=== PATIENT | male | born 1945 | race African-American/Black ===

== ENCOUNTER 2020-07-06 14:58 | Inpatient (IN) ==
[2020-07-06] MEDS ORDERED: PANTOPRAZOLE 40 MG VIAL IV STA (15:30)
[2020-07-06] MEDS ORDERED: SODIUM CHLORIDE 0.9% 1,000 ML IV STA (15:30)
[2020-07-06 16:25] LABS: Basophils % 0.2 % (0.0-0.8); Eosinophils % 0.2 % (0.00-10.9); Hematocrit 32.7 VOL% (42.0-52.0); Hemoglobin 10.6 GM/DL (14.0-18.0); Immature Granulocytes % 0.6 %; Immature Granulocytes Absolute 0.05 #; Lymphocytes # 0.9 10*3/uL (1.4-4.0); Lymphocytes % 9.7 % (21.2-54.2); Mean Corpuscular HGB Conc 32.4 GM/DL (32-36); Mean Corpuscular Volume 85.8 FL (87-102); Mean Platelet Volume 9.2 FL (9.6-12.0); Monocytes % 5.1 % (1.7-12.7); Neutrophils % 84.2 % (38.7-73.9); Platelet Count 358 T/CUMM (130-400); Red Blood Count 3.81 MC/CUMM (3.8-5.5); Red Cell Distribution Width 14.6 % (9.3-17.3); White Blood Count 8.8 T/CUMM (4-12)
[2020-07-06 16:43] LABS: Alanine Aminotransferase 13 U/L (16-61); Alkaline Phosphatase 61 U/L (45-117); Aspartate Amino Transferase 10 U/L (0-37); Bilirubin,Total < 0.39 MG/DL (0.2-1.0); Blood Urea Nitrogen 94 MG/DL (7-18); Calcium 8.2 MG/DL (8.5-10.1); Carbon Dioxide 16 MMOL/L (21-32); Estimated Glom Filtration Rate 15 ML/MIN; Glucose 87 MG/DL (74-106); Osmolality,Calculated 295.2 MOS/KG (273-304); PT Patient Result 10.4 SECS (9.8-11.9); Partial Thromboplastin Time 24.5 SECS (23.9-33.8); Potassium 4.5 MMOL/L (3.5-5.1); Sodium 134 MMOL/L (136-145); Total Protein 7.3 G/DL (6.4-8.3)
[2020-07-06] MEDS ORDERED: ACETAMINOPHEN 325 MG TABLET PO PRN (17:55)
[2020-07-06] MEDS ORDERED: GLUCAGON 1 MG VIAL IM PRN (17:55)
[2020-07-06] MEDS ORDERED: DEXTROSE 50% 25 GM/50 ML VIAL IV PRN (17:55)
[2020-07-06] MEDS ORDERED: ONDANSETRON 4 MG/2 ML VIAL IV PRN (17:55)
[2020-07-06] MEDS: SODIUM CHLORIDE 0.9% 1,000 ML IV SCH (18:17)
[2020-07-06 20:03] LABS: Bilirubin,Urine Negative (Negative); Blood, Urine Moderate mg/dL (Negative); Glucose,Urine (UA) Negative (Negative); Ketones,Urine Negative (Negative); Nitrite,Urine Positive (Negative); Protein,Urine 100 MG/DL; Urine Appearance CLOUDY (Clear); Urine Color Amber (Yellow); Urine Specific Gravity 1.011 (1.001-1.035)
[2020-07-06] MEDS ORDERED: SODIUM CHLORIDE 0.9% 500 ML IV STA (20:05)
[2020-07-07 04:15] LABS: Basophils % 0.4 % (0.0-0.8); Eosinophils # 0.2 10*3/uL (0.0-0.87); Eosinophils % 2.3 % (0.00-10.9); Hematocrit 26.1 VOL% (42.0-52.0); Immature Granulocytes % 0.5 %; Immature Granulocytes Absolute 0.04 #; Lymphocytes # 1.8 10*3/uL (1.4-4.0); Lymphocytes % 21.8 % (21.2-54.2); Mean Corpuscular HGB Conc 32.6 GM/DL (32-36); Mean Corpuscular Volume 86.7 FL (87-102); Mean Platelet Volume 9.6 FL (9.6-12.0); Monocytes % 10.4 % (1.7-12.7); Neutrophils % 64.6 % (38.7-73.9); Platelet Count 346 T/CUMM (130-400); Red Cell Distribution Width 14.8 % (9.3-17.3); White Blood Count 8.4 T/CUMM (4-12)
[2020-07-07 04:18] LABS: Hemoglobin 8.5 GM/DL (14.0-18.0); Red Blood Count 3.01 MC/CUMM (3.8-5.5)
[2020-07-07 04:36] LABS: % Iron Saturation 37.8 % (18-50); Ferritin 114.5 ng/ml (26-388)
[2020-07-07 04:41] LABS: Albumin 2.4 G/DL (3.4-5.0); Bilirubin,Total 0.4 MG/DL (0.2-1.0); Calcium 7.8 MG/DL (8.5-10.1); Osmolality,Calculated 289.1 MOS/KG (273-304); Potassium 4.5 MMOL/L (3.5-5.1); Risk Ratio 5.14; Thyroid Stimulating Hormone 0.895 uIU/ml (0.358-3.74); Total Protein 6.5 G/DL (6.4-8.3); VLDL CHOLESTEROL 19.6 MG/DL
[2020-07-07 04:59] LABS: Folate 6.3 NG/ML (5.38-24.0)
[2020-07-07] MEDS: ATORVASTATIN 40 MG TABLET PO SCH (10:20)
[2020-07-07] MEDS: MONTELUKAST 10 MG TABLET PO SCH (10:20)
[2020-07-07] MEDS: PANTOPRAZOLE 40 MG TABLET PO SCH (10:20)
[2020-07-07] MEDS: cefTRIAXone 1,000 MG in SYRINGE 1 EACH IV SCH (10:26)
[2020-07-07] MEDS: SODIUM CHLORIDE 0.9% 1,000 ML IV SCH ×2 (21:04→21:05)
[2020-07-08] MEDS: SODIUM CHLORIDE 0.9% 1,000 ML IV SCH ×2 (03:40→13:03)
[2020-07-08 05:16] LABS: Basophils # 0.1 10*3/uL (0.0-0.2); Basophils % 1.4 % (0.0-0.8); Eosinophils # 0.3 10*3/uL (0.0-0.87); Eosinophils % 4.3 % (0.00-10.9); Hematocrit 32.4 VOL% (42.0-52.0); Hemoglobin 10.8 GM/DL (14.0-18.0); Immature Granulocytes % 0.3 %; Immature Granulocytes Absolute 0.02 #; Lymphocytes # 1.5 10*3/uL (1.4-4.0); Lymphocytes % 26.3 % (21.2-54.2); Mean Corpuscular HGB Conc 33.3 GM/DL (32-36); Mean Corpuscular Volume 84.8 FL (87-102); Mean Platelet Volume 9.7 FL (9.6-12.0); Monocytes % 12.1 % (1.7-12.7); Neutrophils % 55.6 % (38.7-73.9); Platelet Count 292 T/CUMM (130-400); Red Blood Count 3.82 MC/CUMM (3.8-5.5); Red Cell Distribution Width 15.3 % (9.3-17.3); White Blood Count 5.8 T/CUMM (4-12)
[2020-07-08 05:37] LABS: Albumin 2.5 G/DL (3.4-5.0); Bilirubin,Total 0.7 MG/DL (0.2-1.0); Calcium 7.9 MG/DL (8.5-10.1); Osmolality,Calculated 290.4 MOS/KG (273-304); Potassium 5.2 MMOL/L (3.5-5.1); Total Protein 6.4 G/DL (6.4-8.3)
[2020-07-08] MEDS: cefTRIAXone 1,000 MG in SYRINGE 1 EACH IV SCH ×2 (09:05→10:22)
[2020-07-08] MEDS: TAMSULOSIN 0.4 MG CAPSULE PO SCH (09:05)
[2020-07-08] MEDS: PANTOPRAZOLE 40 MG TABLET PO SCH (09:05)
[2020-07-08] MEDS: MONTELUKAST 10 MG TABLET PO SCH (09:05)
[2020-07-08] MEDS: ATORVASTATIN 40 MG TABLET PO SCH (09:05)
[2020-07-08] MEDS ORDERED: GLUCAGON 1 MG VIAL IM PRN (16:46)
[2020-07-08] MEDS: INSULIN LISPRO 100 UNIT/ML SUBCUT SCH (23:06)
[2020-07-09] MEDS: SODIUM CHLORIDE 0.9% 1,000 ML IV SCH ×2 (00:33→15:48)
[2020-07-09 05:05] LABS: Basophils # 0.1 10*3/uL (0.0-0.2); Basophils % 1.3 % (0.0-0.8); Eosinophils # 0.4 10*3/uL (0.0-0.87); Eosinophils % 5.2 % (0.00-10.9); Hematocrit 32.5 VOL% (42.0-52.0); Hemoglobin 10.5 GM/DL (14.0-18.0); Immature Granulocytes % 0.3 %; Immature Granulocytes Absolute 0.02 #; Lymphocytes # 1.6 10*3/uL (1.4-4.0); Lymphocytes % 22.5 % (21.2-54.2); Mean Corpuscular HGB Conc 32.3 GM/DL (32-36); Mean Corpuscular Volume 86.4 FL (87-102); Mean Platelet Volume 9.3 FL (9.6-12.0); Neutrophils % 60.7 % (38.7-73.9); Platelet Count 278 T/CUMM (130-400); Red Blood Count 3.76 MC/CUMM (3.8-5.5); Red Cell Distribution Width 15.1 % (9.3-17.3); White Blood Count 7.1 T/CUMM (4-12)
[2020-07-09 05:32] LABS: Calcium 8.1 MG/DL (8.5-10.1); Potassium 5.4 MMOL/L (3.5-5.1)
[2020-07-09] MEDS ORDERED: INSULIN REGULAR 10 UNIT, CALCIUM GLUCONATE 1,000 MG in DEXTROSE 10% 250 ML IV ONE (08:15)
[2020-07-09] MEDS: TAMSULOSIN 0.4 MG CAPSULE PO SCH (09:19)
[2020-07-09] MEDS: PANTOPRAZOLE 40 MG TABLET PO SCH (09:19)
[2020-07-09] MEDS: ATORVASTATIN 40 MG TABLET PO SCH (09:19)
[2020-07-09] MEDS: MONTELUKAST 10 MG TABLET PO SCH (09:19)
[2020-07-09] MEDS: INSULIN LISPRO 100 UNIT/ML SUBCUT SCH ×4 (09:20→21:59)
[2020-07-09] MEDS: cefTRIAXone 1,000 MG in SYRINGE 1 EACH IV SCH (09:20)
[2020-07-10] MEDS: SODIUM CHLORIDE 0.9% 1,000 ML IV SCH ×3 (04:51→15:56)
[2020-07-10 05:46] LABS: Basophils # 0.1 10*3/uL (0.0-0.2); Eosinophils # 0.5 10*3/uL (0.0-0.87); Eosinophils % 5.4 % (0.00-10.9); Hematocrit 30.4 VOL% (42.0-52.0); Hemoglobin 10.3 GM/DL (14.0-18.0); Immature Granulocytes % 0.5 %; Immature Granulocytes Absolute 0.04 #; Lymphocytes # 1.8 10*3/uL (1.4-4.0); Lymphocytes % 22.2 % (21.2-54.2); Mean Corpuscular HGB Conc 33.9 GM/DL (32-36); Mean Corpuscular Volume 84.4 FL (87-102); Mean Platelet Volume 9.5 FL (9.6-12.0); Monocytes % 7.3 % (1.7-12.7); Neutrophils % 63.6 % (38.7-73.9); Platelet Count 264 T/CUMM (130-400); Red Cell Distribution Width 14.5 % (9.3-17.3); White Blood Count 8.3 T/CUMM (4-12)
[2020-07-10 06:06] LABS: Calcium 8.2 MG/DL (8.5-10.1); Osmolality,Calculated 272.1 MOS/KG (273-304); Potassium 4.9 MMOL/L (3.5-5.1)
[2020-07-10] MEDS: INSULIN LISPRO 100 UNIT/ML SUBCUT SCH ×4 (08:33→20:44)
[2020-07-10] MEDS: cefTRIAXone 1,000 MG in SYRINGE 1 EACH IV SCH (09:28)
[2020-07-10] MEDS: MAGNESIUM OXIDE 400 MG TABLET PO SCH ×2 (09:39→20:43)
[2020-07-10] MEDS: PANTOPRAZOLE 40 MG TABLET PO SCH (09:39)
[2020-07-10] MEDS: ATORVASTATIN 40 MG TABLET PO SCH (09:40)
[2020-07-10] MEDS: MONTELUKAST 10 MG TABLET PO SCH (09:40)
[2020-07-10] MEDS: TAMSULOSIN 0.4 MG CAPSULE PO SCH (09:40)
[2020-07-11 06:03] LABS: Basophils # 0.1 10*3/uL (0.0-0.2); Eosinophils # 0.4 10*3/uL (0.0-0.87); Eosinophils % 4.4 % (0.00-10.9); Hematocrit 29.3 VOL% (42.0-52.0); Immature Granulocytes % 0.5 %; Immature Granulocytes Absolute 0.05 #; Lymphocytes # 1.9 10*3/uL (1.4-4.0); Lymphocytes % 20.6 % (21.2-54.2); Mean Corpuscular HGB Conc 34.1 GM/DL (32-36); Mean Corpuscular Volume 82.8 FL (87-102); Mean Platelet Volume 9.2 FL (9.6-12.0); Monocytes % 7.4 % (1.7-12.7); Neutrophils % 66.1 % (38.7-73.9); Platelet Count 258 T/CUMM (130-400); Red Blood Count 3.54 MC/CUMM (3.8-5.5); Red Cell Distribution Width 14.3 % (9.3-17.3); White Blood Count 9.2 T/CUMM (4-12)
[2020-07-11] MEDS: SODIUM CHLORIDE 0.9% 1,000 ML IV SCH ×2 (06:03→12:46)
[2020-07-11 07:49] LABS: Calcium 8.1 MG/DL (8.5-10.1); Potassium 4.4 MMOL/L (3.5-5.1)
[2020-07-11] MEDS: MONTELUKAST 10 MG TABLET PO SCH (09:12)
[2020-07-11] MEDS: TAMSULOSIN 0.4 MG CAPSULE PO SCH (09:12)
[2020-07-11] MEDS: ATORVASTATIN 40 MG TABLET PO SCH (09:12)
[2020-07-11] MEDS: PANTOPRAZOLE 40 MG TABLET PO SCH (09:12)
[2020-07-11] MEDS: cefTRIAXone 1,000 MG in SYRINGE 1 EACH IV SCH (09:13)
[2020-07-11] MEDS: INSULIN LISPRO 100 UNIT/ML SUBCUT SCH ×2 (11:01→12:45)
[2020-07-11 12:40] VITALS: BP 114/65
== END 2020-07-11 14:45 | disposition home health service (06) | DRG 726 ==
LOC: EDUNIT# → EDBD → N.EDINP 14:58 → N.ED 14:58 → N.EDINP 07-07 12:45 → N.TELEN 07-07 13:15 → SUATTDRO 07-07 16:34
PROVIDERS: ADMIT Internal Medicine; ATTEND Internal Medicine